=== PATIENT | female | born 1995 | race Hispanic/Latino ===

== ENCOUNTER 2019-01-03 21:50 | Inpatient (IN) | payer MEDICAID ==
[2019-01-03] MEDS ORDERED: LACTATED RINGERS 1,000 ML ONE (23:04)
[2019-01-03] MEDS ORDERED: OXYTOCIN 20 UNIT/1000ML DRIP 20,000 MILLIUNITS/1,000 ML BAG IV ONE (23:08)
[2019-01-03] MEDS ORDERED: MINERAL OIL 30 ML ORAL LIQD ONE (23:28)
[2019-01-03] MEDS ORDERED: METHYLERGONOVINE MALEATE 0.2 MG/ML VIAL IM ONE ×2 (23:40→23:43)
[2019-01-03] MEDS ORDERED: LACTATED RINGERS 1,000 ML IV SCH (23:45)
[2019-01-03] MEDS ORDERED: OXYTOCIN 20 UNIT/1000ML DRIP 20 UNITS/1,000 ML BAG IV SCH (23:45)
[2019-01-03] MEDS ORDERED: TERBUTALINE 1 MG/1 ML INJ IVP PRN (23:53)
[2019-01-03] MEDS ORDERED: TERBUTALINE 1 MG/1 ML INJ SUB-Q PRN (23:53)
[2019-01-03] MEDS ORDERED: ePHEDrine SULFATE 50 MG/1 ML INJ IV PRN (23:53)
[2019-01-03] MEDS ORDERED: MINERAL OIL 30 ML ORAL LIQD PO PRN (23:53)
--- NOTE | 2019-01-04 00:04 | History and Physical Report ---
History of Present Illness Date of examination: 01/04/19 Date of admission: 01/04/2019 Chief complaint: I'm in labor History of present illness: Patient is a 23 year old who presents in active labor with SROM at home. She has had an uncomplicated course. Her GBS is negative. Past History Past Medical History: no pertinent history Past Surgical History: no surgical history Family/Genetic History: none Social history: - Obstetrical History Expected Date of Delivery: 01/09/19 Actual Gestation: 39 Week(s) 2 Day(s) : 1 Medications and Allergies Active Meds: Active Medications Ephedrine Sulfate (Ephedrine Sulfate) 10 mg IV Q2M PRN PRN Reason: Hypotension Oxytocin/Sodium Chloride (Pitocin/Ns 20 Unit/1000ml Drip) 20 units in 1,000 mls @ 125 mls/hr IV DIRECT JEAN Lactated Ringer's (Lactated Ringers) 1,000 mls @ 125 mls/hr IV DIRECT JEAN Mineral Oil (Mineral Oil) 30 ml PO QHS PRN PRN Reason: Constipation Terbutaline Sulfate (Brethine) 0.25 mg SUB-Q ONCE PRN PRN Reason: Hyperstimulation/Hypertonicity Terbutaline Sulfate (Brethine) 0.25 mg IVP ONCE PRN PRN Reason: Hyperstimulation/Hypertonicity Review of Systems All systems: negative Constitutional: fatigue Genitourinary: leakage of fluid, pelvic pain, contractions - Physical Exam Breasts: Cardiovascular: Regular rate, Normal S1, Normal S2 Lungs: Positive: Clear to auscultation, Normal air movement Abdomen: Positive: normal appearance, soft, normal bowel sounds. Negative: distention, tenderness Genitourinary (Female): Positive: normal external genitalia, normal perenium Vulva: both: normal Vagina: Positive: normal moisture. Negative: discharge Cervix: Negative: lesion, discharge Uterus: Positive: normal size, normal contour Adnexa: both: normal Anus/Rectum: Positive: normal perianal skin, heme negative. Negative: rectal mass, hemorrhoids Extremities: Deep Tendon Reflex Grade: Normal +2 - Obstetrical Cervical Dilatation: 3 Cervical Effacement Percentage: 90 station: -1 Uterine Contraction Pattern: Regular Uterine Tone Measurement Phase: Contraction Uterine Contraction Intensity: Moderate Results All other labs normal. Assessment and Plan IUP at 39.1 weeks in active labor with SROM. Admit for labor. anticipate .
[2019-01-04 00:11] LABS: Hematocrit 41.2 % (30.3-42.9); Hemoglobin 13.8 gm/dl (10.1-14.3); Mean Corpuscular HGB Conc 34 % (30-34); Mean Corpuscular Volume 93 fl (79-97); Platelet Count 325 K/mm3 (140-440); Red Blood Count 4.41 M/mm3 (3.65-5.03); Red Cell Distribution Width 13.4 % (13.2-15.2)
--- NOTE | 2019-01-04 00:16 | Procedure Note ---
OB Delivery Note - Delivery Date of Delivery: 01/03/19 Surgeon: MO MANCINI Estimated blood loss: 300cc - Vaginal Delivery presentation: vertex Delivery position: OA Intrapartum events: precipitous labor- <3hr Delivery induction: none Delivery monitor: external FHT, external uterine Route of delivery: Delivery placenta: spontaneous Delivery cord: nuchal cord, 3 umbilical vessels Episiotomy: none Delivery laceration: none Anesthesia: none Delivery comments: Viable female delivered over intact perineum with loose nuchal easily reduced. Weight 6 pounds 14 ounces. Apgars 8,9. Infant placed on maternal abdomen. Cord clamped and cut when done pulsing. Placenta delivered spontaneously and intact with 3vc. No lacerations. Excellent hemostasis. Pt tolerated procedure well. - A at 1 minute: 8 at 5 minutes: 9 Gender: Female (6 pounds 14 ounces)
[2019-01-04] MEDS ORDERED: PROMETHAZINE 25 MG RECT SUPP PR PRN (02:30)
[2019-01-04] MEDS ORDERED: PROMETHAZINE 25 MG TAB PO PRN (02:30)
[2019-01-04] MEDS ORDERED: HYDROcodone/ACETAMINOPHEN 5-325 MG TAB PO PRN (02:30)
[2019-01-04] MEDS ORDERED: MAGNESIUM HYDROXIDE (MOM) ORAL LIQD UDC PO PRN (02:30)
[2019-01-04] MEDS ORDERED: LANOLIN/ZINC/DIMETHICONE (LANSINOH) 7 GM TP PRN (02:30)
[2019-01-04] MEDS ORDERED: diphenhydrAMINE 25 MG CAP PO PRN (02:30)
[2019-01-04] MEDS ORDERED: WITCH HAZEL/ GLYCERIN PAD TP PRN (02:30)
[2019-01-04] MEDS ORDERED: ONDANSETRON 4 MG/2 ML INJ IV PRN (02:30)
[2019-01-04] MEDS ORDERED: ACETAMINOPHEN 325 MG TAB PO PRN (02:30)
[2019-01-04] MEDS: IBUPROFEN 600 MG TAB PO SCH ×3 (06:25→18:13)
[2019-01-04] MEDS ORDERED: DOCUSATE SODIUM 100 MG CAP PO SCH (10:00)
[2019-01-04] MEDS ORDERED: PRENATAL VIT27-FE FUMARATE-FOLIC ACID VIT TAB PO SCH (10:00)
[2019-01-04 14:38] LABS: Hematocrit 34.7 % (30.3-42.9); Hemoglobin 11.7 gm/dl (10.1-14.3)
--- NOTE | 2019-01-04 18:37 | Progress Note ---
Assessment and Plan PPD 1 S/P PRECIPITOUS DELIVERY AT TERM. PATIENT DOING WELL. PLAN FOR DISCHARGE TOMORROW. Subjective - Subjective Date of service: 01/04/19 Interval history: Patient is a 23 year old who presents in active labor with SROM at home. She has had an uncomplicated course. Her GBS is negative. Patient reports: appetite normal, voiding normally, pain well controlled, ambulating normally [place]: doing well Objective - Vital Signs Latest vital signs: Vital Signs Temp Pulse Resp BP BP Pulse Ox 01/04/19 12:46 98.1 F 80 20 125/78 98 01/04/19 08:32 97.8 F 83 20 121/76 96 01/04/19 02:45 98.8 F 74 18 125/81 99 Intake and Output 01/04/19 01/04/19 01/04/19 06:59 14:59 22:59 Intake Total 480 Balance 480 Intake: Oral 480 Other: Total, Intake Amount 240 # Voids Void 1 Estimated Blood Loss 300 - Exam Breasts: Present: deferred Cardiovascular: Present: Regular rate, Normal S1, Normal S2 Lungs: Present: Clear to auscultation, Normal air movement Abdomen: Present: normal appearance, soft, normal bowel sounds Uterus: Present: normal, firm, fundal height below umbilicus Extremities: Present: normal - Labs Labs: Abnormal lab results 01/03/19 Range/Units 23:00 WBC 17.0 H (4.5-11.0) K/mm3
--- NOTE | 2019-01-04 18:39 | Discharge Summary ---
Providers - Providers Date of Admission: 01/03/19 23:55 Date of discharge: 01/05/19 Attending physician: MO MANCINI Primary care physician: MO MANCINI Hospitalization Reason for admission: active labor Delivery: Episiotomy: none Laceration: none complications: none Discharge diagnosis: IUP at term delivered baby: female Condition at discharge: Good Disposition: DC-01 TO HOME OR SELFCARE Plan - Discharge Medications Prescriptions: Ibuprofen [Motrin] 800 mg PO Q8HR PRN #40 tablet PRN Reason: Pain, Moderate (4-6) HYDROcodone/APAP 5-325 [Artesian 5/325] 1 each PO Q6HR PRN #15 tablet PRN Reason: Pain - Provider Discharge Summary Activity: routine, no sex for 6 weeks, no heavy lifting 4 weeks, no strenuous exercise Diet: routine Instructions: routine Additional instructions: [] Smoking cessation referral if applicable(refer to patient education folder for contact #) [] Refer to [facility] Booklet Call your doctor immediately for: * Fever > 100.5 * Heavy vaginal bleeding ( >1 pad per hour) * Severe persistent headache * Shortness of breath * Reddened, hot, painful area to leg or breast * Drainage or odor from incision. * Keep incision clean and dry at all times and follow doctor's instructions regarding bathing/showering - Follow up plan Follow up: MO MANCINI MD [Primary Care Provider] - 6 Weeks
[2019-01-05 08:53] VITALS: BP 111/65
== END 2019-01-05 13:10 | disposition home or self-care (01) | DRG 775 ==
LOC: TRG 21:50 → LD 23:02 → TRG 23:55 → OB 01-04 02:10
PROVIDERS: ADMIT Obstetrics & Gynecology; ATTEND Obstetrics & Gynecology
PROC: 10E0XZZ Delivery of Products of Conception, External Approach (ICD-10-PCS; principal; 2019-01-03)
DX: O62.3 Precipitate labor (principal); O69.81X0 Labor and delivery complicated by cord around neck, without compression, not applicable or unspecified; Z3A.39 39 weeks gestation of pregnancy; Z37.0 Single live birth
CPT/HCPCS: 36415; 85014; 85018; 85027; 86850; 86900; 86901; G0378; J2210; J2590; J7120